=== PATIENT | male | born 1985 | race Caucasian/White ===

== ENCOUNTER 2019-09-22 15:19 | Emergency (ER) | payer MEDICAID ==
[~2019-09-22] VITALS: Ht 175.3 cm; Wt 90.9 kg
[2019-09-22] MEDS ORDERED: ALPR-624 PO (17:07)
[2019-09-22] MEDS ORDERED: FLUO40CA10 PO (17:07)
[2019-09-22] MEDS ORDERED: ALPR1TAB7 PO ×2 (17:12→17:27)
[2019-09-22 17:37] VITALS: BP 130/80
== END 2019-09-22 17:39 | disposition home or self-care (01) ==
LOC: ER 15:19
DX: F41.0 Panic disorder [episodic paroxysmal anxiety] (principal); F43.10 Post-traumatic stress disorder, unspecified; G89.29 Other chronic pain; Z79.899 Other long term (current) drug therapy
CPT/HCPCS: 99283

== ENCOUNTER 2019-10-12 14:10 | Emergency (ER) | payer MEDICAID ==
[~2019-10-12] VITALS: Ht 175.3 cm; Wt 95.5 kg
[~2019-10-12 14:10] MED LIST: ALPR1TAB7 PO; FLUO40CA10 PO
[2019-10-12 14:50] LABS: BASOPHILS % (AUTO) 0.6 % (0-1); EOSINOPHILS # (AUTO) 0.3 X10'3 (0-0.9); EOSINOPHILS % (AUTO) 4.5 % (0-6); HEMATOCRIT 47.5 % (42.0-52.0); HEMOGLOBIN 16.4 g/dl (14.0-17.9); LYMPHOCYTES # (AUTO) 1.9 X10'3 (1.1-4.8); LYMPHOCYTES % (AUTO) 24.8 % (21-51); MEAN CORPUSCULAR HEMOGLOBIN 31.3 PG (27.0-31.0); MEAN CORPUSCULAR HGB CONC 34.6 g/dL (33.0-36.5); MEAN CORPUSCULAR VOLUME 90.6 FL (78-98); MEAN PLATELET VOLUME 9.2 FL (7.4-10.4); MONOCYTES # (AUTO) 0.5 X10'3 (0-0.9); MONOCYTES % (AUTO) 7.1 % (2-12); NEUTROPHILS # (AUTO) 4.7 X10'3 (1.8-7.7); PLATELET COUNT 226 X10'3 (140-440); RED BLOOD COUNT 5.25 X10'6 (4.70-6.10); RED CELL DISTRIBUTION WIDTH 13.3 % (11.5-14.5); WHITE BLOOD COUNT 7.5 X10'3 (4.5-11.0)
[2019-10-12 15:07] LABS: ALANINE AMINOTRANSFERASE 38 U/L (12-78); ALKALINE PHOSPHATASE 94 IU/L (46-116); ANION GAP 8 (8-16); ASPARTATE AMINO TRANSFERASE 70 U/L (10-37); BILIRUBIN,TOTAL 0.8 MG/DL (0.1-1.0); BLOOD UREA NITROGEN 13 MG/DL (7-18); BUN/CREATININE RATIO 12.1 (5.4-32.0); CHLORIDE 100 MMOL/L (99-107); CREATININE 1.07 MG/DL (0.60-1.10); GLUCOSE 153 MG/DL (70-104); POTASSIUM 3.9 MMOL/L (3.5-5.1); SODIUM 135 MMOL/L (135-145); TOTAL CARBON DIOXIDE 27.2 MMOL/L (24-32); TOTAL PROTEIN 7.9 G/DL (6.4-8.2); eGFR 79 ML/MIN
--- NOTE | 2019-10-12 15:50 | NUR ---
ED provider Dr. Schultz is in the room with the patient.
[2019-10-12] MEDS ORDERED: LORazepam 1 MG tablet PO ONE (16:05)
--- NOTE | 2019-10-12 16:30 | NUR ---
Pt changed into green scrubs and belongings secured. Pt is calm and cooperative at this time.
[2019-10-12] MEDS ORDERED: LISD60CA PO (16:40)
[2019-10-12] MEDS ORDERED: FLUO20CA39 PO (16:54)
[2019-10-12] MEDS ORDERED: ALPR0.5T8 PO (16:54)
[2019-10-12 17:08] LABS: URINE AMPHETAMINE SCREEN POSITIVE (Neg); URINE BARBITUATE SCREEN NEGATIVE (Neg); URINE BENZODIAZEPINES SCREEN NEGATIVE (Neg); URINE CANNABINOID SCREEN POSITIVE (Neg); URINE COCAINE SCREEN NEGATIVE (Neg); URINE METHADONE SCREEN NEGATIVE (Neg); URINE OPIATE SCREEN NEGATIVE (Neg); URINE PHENCYCLIDINE SCREEN NEGATIVE (Neg)
--- NOTE | 2019-10-12 17:25 | NUR ---
Pt resting on the gurney. No change in condition.
[2019-10-12 17:52] LABS: ETHANOL < 0.010 GM/DL (0.0-0.010)
--- NOTE | 2019-10-12 18:15 | NUR ---
Pt is awaiting mental health evaluation from [facility] entry level project coordinator.
--- NOTE | 2019-10-12 18:57 | NUR ---
PT moved to the overflow section of the ED for further monitoring while awaiting mental health evaluation.
--- NOTE | 2019-10-12 19:00 | NUR ---
PT ESCORTED TO ER OVERFLOW BY STAFF, HE IS CALM AND COOPERATIVE WITH 1:1
--- NOTE | 2019-10-12 19:45 | NUR ---
PACKET FAXED TO [facility]
--- NOTE | 2019-10-12 20:15 | NUR ---
BREAKING PRIMARY RN- WILL CONT TO MONITOR.
[2019-10-12] MEDS: ALPRAZolam 0.5mg tablet PO PRN (20:17)
--- NOTE | 2019-10-12 20:45 | NUR ---
[facility] VISITED WITH PT, [id number] WILL BE WRITTEN
--- NOTE | 2019-10-12 21:50 | NUR ---
breaking primary RN- will cont to monitor.
--- NOTE | 2019-10-13 00:48 | NUR ---
PT asleeping on back, RR 16, even and unlabored.
--- NOTE | 2019-10-13 02:00 | NUR ---
PT ASLEEP ON L SIDE, RR WNL
--- NOTE | 2019-10-13 05:00 | NUR ---
PT TOSSES AND TURNS OCCASIONALLY BUT FALLS BACK ASLEEP
[2019-10-13 07:05] LABS: CLARITY,URINE CLEAR (Clear); COLOR,URINE YELLOW (Yellow); GLUCOSE, URINE NEGATIVE (Neg); KETONES,URINE NEGATIVE (Neg); LEUKOCYTE ESTERASE ,URINE NEGATIVE (Neg); NITRITES, URINE NEGATIVE (Neg); OCCULT BLOOD,URINE NEGATIVE (Neg); PH,URINE 7.5 (4.8-8.0); PROTEIN,URINE NEGATIVE (Neg)
[2019-10-13 07:06] LABS: UA COLLECTION TYPE CLN CATCH MIDSTREAM
--- NOTE | 2019-10-13 07:19 | NUR ---
PT IN BED RESTING SEEN REPOSITIONING SELF
[2019-10-13] MEDS: FLUoxetine 20mg capsule PO SCH (08:15)
[2019-10-13] MEDS: ALPRAZolam 0.5mg tablet PO PRN ×2 (08:15→20:17)
--- NOTE | 2019-10-13 08:53 | NUR ---
in bed resting at this time rise and fall of chest noted
--- NOTE | 2019-10-13 09:36 | NUR ---
patient asleep at this time,we will monitor.
--- NOTE | 2019-10-13 10:13 | NUR ---
in bed resting
--- NOTE | 2019-10-13 11:35 | NUR ---
in bed resting seen ambulating to bathroom
--- NOTE | 2019-10-13 13:22 | NUR ---
lunch surved but pt not eating at this time still trying to sleep
--- NOTE | 2019-10-13 16:35 | NUR ---
patient asleep at this time.We will continue to monitor.
--- NOTE | 2019-10-13 17:04 | NUR ---
pt awake laying in bed inform me that he normaly takes 1mg xanax not the 0.5 that is ordered and asked if he could get it incresed
--- NOTE | 2019-10-13 19:00 | NUR ---
PT ASLEEP IN BED, DECLINES HIS DINNER TRAY
--- NOTE | 2019-10-13 20:15 | NUR ---
PT REQUESTS PRN XANAX 0.5 MG WHICH IS GIVEN TO HIM.
--- NOTE | 2019-10-13 23:13 | NUR ---
PT ASLEEP ON BACK, RR 16
--- NOTE | 2019-10-14 03:03 | NUR ---
PT ASLEEP ON BACK, RR 16 EVEN AND UNLABORED
[2019-10-14] MEDS: FLUoxetine 20mg capsule PO SCH (08:12)
[2019-10-14] MEDS: ALPRAZolam 0.5mg tablet PO PRN ×2 (09:49→21:56)
[2019-10-14 17:36] VITALS: BP 121/83
--- NOTE | 2019-10-14 21:33 | NUR ---
Patient is sleeping quietly on his right side. He has self repositioned.
[2019-10-17] MEDS ORDERED: HYDR-3686 PO (17:17)
[2019-10-17] MEDS ORDERED: NICO-687 TD (17:17)
[2019-10-17] MEDS ORDERED: FLUO20CA39 PO (17:28)
== END 2019-10-14 23:44 ==
LOC: ER 14:11
DX: R45.851 Suicidal ideations (principal); R00.2 Palpitations; F15.90 Other stimulant use, unspecified, uncomplicated; R07.89 Other chest pain; G89.29 Other chronic pain; F41.9 Anxiety disorder, unspecified; Z79.899 Other long term (current) drug therapy
CPT/HCPCS: 36415; 71045; 80053; 80305; 80320; 81003; 83880; 84443; 84484; 85025; 93005; 99285

== ENCOUNTER 2019-11-20 06:13 | Emergency (ER) | payer MEDICAID ==
[~2019-11-20] VITALS: Ht 175.3 cm; Wt 95.5 kg
[~2019-11-20 06:13] MED LIST changes: -ALPR1TAB7 PO; +FLUO20CA39 PO; -FLUO40CA10 PO; +HYDR-3686 PO; +NICO-687 TD
[2019-11-20] MEDS ORDERED: LORazepam 1 MG tablet PO ONE (06:25)
--- NOTE | 2019-11-20 07:27 | NUR ---
PATIENT UP TO BATHROOM AND URINE CUP GIVEN TO PROVIDE SPECIMEN. PATIENT DID NOT GIVE SPECIMEN AT THIS TIME.
[2019-11-20 08:27] VITALS: BP 160/102
== END 2019-11-20 08:32 | disposition home or self-care (01) ==
LOC: ER 06:13
DX: F43.0 Acute stress reaction (principal); F41.9 Anxiety disorder, unspecified; G89.29 Other chronic pain; F17.200 Nicotine dependence, unspecified, uncomplicated; F12.90 Cannabis use, unspecified, uncomplicated; F15.90 Other stimulant use, unspecified, uncomplicated; Z72.89 Other problems related to lifestyle; Z79.899 Other long term (current) drug therapy
CPT/HCPCS: 99283

== ENCOUNTER 2019-11-24 10:45 | Emergency (ER) | payer MEDICAID ==
[~2019-11-24] VITALS: Ht 175.3 cm; Wt 102.0 kg
[2019-11-24 10:48] VITALS: BP 148/95
== END 2019-11-24 13:06 | disposition home or self-care (01) ==
LOC: ER 10:47
DX: Z00.8 Encounter for other general examination (principal); F10.239 Alcohol dependence with withdrawal, unspecified; Y90.9 Presence of alcohol in blood, level not specified
CPT/HCPCS: 99281

== ENCOUNTER 2020-07-23 08:33 | Emergency (ER) | payer MEDICAID ==
[~2020-07-23] VITALS: Ht 175.3 cm; Wt 100.0 kg
[2020-07-23] MEDS ORDERED: morphine 4 MG/ML inj SYRINge IV ONE ×2 (09:00→10:20)
[2020-07-23] MEDS ORDERED: ondansetron/PF 4mg/2ml inj IV ONE (09:00)
[2020-07-23 09:13] LABS: BASOPHILS % (AUTO) 0.4 % (0-1); EOSINOPHILS # (AUTO) 0.1 X10'3 (0-0.9); EOSINOPHILS % (AUTO) 1.4 % (0-6); HEMATOCRIT 47.1 % (42.0-52.0); HEMOGLOBIN 16.5 g/dl (14.0-17.9); LYMPHOCYTES # (AUTO) 1.8 X10'3 (1.1-4.8); LYMPHOCYTES % (AUTO) 19.6 % (21-51); MEAN CORPUSCULAR HEMOGLOBIN 30.4 PG (27.0-31.0); MEAN PLATELET VOLUME 8.6 FL (7.4-10.4); MONOCYTES # (AUTO) 0.7 X10'3 (0-0.9); MONOCYTES % (AUTO) 7.7 % (2-12); NEUTROPHILS # (AUTO) 6.7 X10'3 (1.8-7.7); NEUTROPHILS % (AUTO) 70.9 % (42-75); PLATELET COUNT 274 X10'3 (140-440); RED BLOOD COUNT 5.41 X10'6 (4.70-6.10); RED CELL DISTRIBUTION WIDTH 12.7 % (11.5-14.5); WHITE BLOOD COUNT 9.4 X10'3 (4.5-11.0)
--- NOTE | 2020-07-23 09:22 | NUR ---
PATRICIO LEES AT BEDSIDE.
[2020-07-23] MEDS ORDERED: LORazepam 2 mg/ml vial IV ONE (09:25)
[2020-07-23] MEDS ORDERED: normal saline 1000ML IV soln IVB ONE (09:25)
[2020-07-23] MEDS ORDERED: ketorolac trometh. 30mg/ml inj. IV ONE (09:25)
[2020-07-23 09:27] LABS: ALANINE AMINOTRANSFERASE 38 U/L (12-78); ALBUMIN 4.3 G/DL (3.4-5.0); ALBUMIN/GLOBULIN RATIO 1.5 (1.1-1.5); ALKALINE PHOSPHATASE 53 IU/L (46-116); ANION GAP 10 (8-16); ASPARTATE AMINO TRANSFERASE 20 U/L (10-37); BLOOD UREA NITROGEN 14 MG/DL (7-18); BUN/CREATININE RATIO 10.1 (5.4-32.0); CALCIUM 8.9 MG/DL (8.5-10.1); CHLORIDE 96 MMOL/L (99-107); CREATININE 1.38 MG/DL (0.60-1.10); GLUCOSE 100 MG/DL (70-104); LIPASE 54 U/L (73-393); POTASSIUM 3.4 MMOL/L (3.5-5.1); SODIUM 136 MMOL/L (135-145); TOTAL CARBON DIOXIDE 30.3 MMOL/L (24-32); TOTAL PROTEIN 7.1 G/DL (6.4-8.2); eGFR 59 ML/MIN
[2020-07-23] MEDS ORDERED: tamsulosin 0.4mg capsule PO STA (10:02)
[2020-07-23 10:10] LABS: CLARITY,URINE CLEAR (Clear); COLOR,URINE STRAW (Yellow); GLUCOSE, URINE NEGATIVE (Neg); KETONES,URINE NEGATIVE (Neg); LEUKOCYTE ESTERASE ,URINE NEGATIVE (Neg); NITRITES, URINE NEGATIVE (Neg); OCCULT BLOOD,URINE NEGATIVE (Neg); PROTEIN,URINE NEGATIVE (Neg); UROBILINOGEN,URINE 0.2 E.U/dL (0.2-1.0)
[2020-07-23 10:17] LABS: UA COLLECTION TYPE STRAIGHT CATH
[2020-07-23 10:19] LABS: URINE AMPHETAMINE SCREEN POSITIVE (Neg); URINE BARBITUATE SCREEN NEGATIVE (Neg); URINE BENZODIAZEPINES SCREEN NEGATIVE (Neg); URINE CANNABINOID SCREEN NEGATIVE (Neg); URINE COCAINE SCREEN NEGATIVE (Neg); URINE METHADONE SCREEN NEGATIVE (Neg); URINE OPIATE SCREEN POSITIVE (Neg); URINE PHENCYCLIDINE SCREEN NEGATIVE (Neg)
[2020-07-23 11:25] VITALS: BP 135/88
--- NOTE | 2020-07-23 11:28 | NUR ---
pt dc'd home
== END 2020-07-23 12:17 | disposition home or self-care (01) ==
LOC: ER 08:33
DX: R10.32 Left lower quadrant pain (principal); K59.00 Constipation, unspecified; R11.2 Nausea with vomiting, unspecified; G89.29 Other chronic pain; F41.9 Anxiety disorder, unspecified; F12.90 Cannabis use, unspecified, uncomplicated; F15.90 Other stimulant use, unspecified, uncomplicated; Z72.89 Other problems related to lifestyle; Z88.8 Allergy status to other drugs, medicaments and biological substances; Z79.899 Other long term (current) drug therapy
CPT/HCPCS: 36415; 74176; 80053; 80305; 81003; 83690; 84484; 85025; 93005; 96361; 96374; 96375; 96376; 99285; J1885; J2060; J2270; J2405; J7030

== ENCOUNTER 2023-11-04 16:36 | Emergency (ER) | payer BC, MEDICAID ==
[~2023-11-04] VITALS: Ht 175.3 cm; Wt 96.1 kg
[2023-11-04 16:37] VITALS: BP 139/86; PULSE 64; RESP 16; TEMP 98; O2SAT 95
== END 2023-11-04 17:05 | disposition home or self-care (01) ==
LOC: ER 16:36
DX: S92.512A Displaced fracture of proximal phalanx of left lesser toe(s), initial encounter for closed fracture (principal); G89.29 Other chronic pain; F12.90 Cannabis use, unspecified, uncomplicated; F15.90 Other stimulant use, unspecified, uncomplicated; Z91.041 Radiographic dye allergy status; Z98.890 Other specified postprocedural states; Z80.1 Family history of malignant neoplasm of trachea, bronchus and lung; X50.1XXA Overexertion from prolonged static or awkward postures, initial encounter; Y93.89 Activity, other specified; Y92.89 Other specified places as the place of occurrence of the external cause; Y99.8 Other external cause status
CPT/HCPCS: 73630; 99283; L3260

== ENCOUNTER 2023-12-30 17:26 | Emergency (ER) | payer BC, OTHER ==
[~2023-12-30] VITALS: Ht 175.3 cm; Wt 93.1 kg
[2023-12-30 17:30] VITALS: TEMP 97.9
[2023-12-30] MEDS ORDERED: prednisone 10mg tablet PO STA (18:06)
[2023-12-30] MEDS: albuterol 2.5 MG/3 ML nebule NEB STA (18:23)
[2023-12-30 18:25] VITALS: PULSE 57; RESP 17; O2SAT 96
[2023-12-30 18:31] VITALS: PULSE 68; RESP 18; O2SAT 97
[2023-12-30] MEDS: predniSONE 20 mg tablet PO STA (19:01)
[2023-12-30] MEDS: guaiFENesin 200mg/20mg codeine phos 10ml UD oral syrup PO STA (19:01)
[2023-12-30 19:45] VITALS: PULSE 58; RESP 17; O2SAT 96
[2023-12-30] MEDS: albuterol 2.5 MG/3 ML nebule NEB ONE (19:45)
[2023-12-30 19:50] VITALS: PULSE 63; RESP 18; O2SAT 97
[2023-12-30] MEDS ORDERED: PRED20TA PO (20:31)
[2023-12-30] MEDS ORDERED: IBUP-1984 PO (20:31)
[2023-12-30] MEDS ORDERED: ALBU18HF2 INH (20:31)
[2023-12-30] MEDS ORDERED: BENZ-38 PO (20:31)
[2023-12-30] MEDS: ketorolac trometh 15mg/ml vial 15 MG/ML ML IM ONE (20:49)
[2023-12-30 20:55] VITALS: BP 106/66; PULSE 56; RESP 16; O2SAT 95
== END 2023-12-30 20:57 | disposition home or self-care (01) ==
LOC: ER 17:27
DX: J20.9 Acute bronchitis, unspecified (principal); Z20.822 Contact with and (suspected) exposure to COVID-19; G89.29 Other chronic pain; F12.90 Cannabis use, unspecified, uncomplicated; F15.90 Other stimulant use, unspecified, uncomplicated; Z98.890 Other specified postprocedural states; Z91.041 Radiographic dye allergy status; Z79.899 Other long term (current) drug therapy
CPT/HCPCS: 36415; 71045; 87502; 87503; 87811; 94640; 96372; 99284; J1885; J7512; 94760

== ENCOUNTER 2024-04-28 19:13 | Emergency (ER) | payer OTHER ==
[~2024-04-28] VITALS: Ht 175.3 cm; Wt 94.0 kg
[~2024-04-28 19:13] MED LIST changes: +ALBU18HF2 INH; +PRED20TA PO
[2024-04-28] MEDS ORDERED: CLIN-197 PO (20:18)
[2024-04-28 20:28] VITALS: BP 128/76; PULSE 74; RESP 16; TEMP 98.5; O2SAT 98
== END 2024-04-28 20:35 | disposition home or self-care (01) ==
LOC: ER 19:13
DX: L03.113 Cellulitis of right upper limb (principal); F12.90 Cannabis use, unspecified, uncomplicated; F15.90 Other stimulant use, unspecified, uncomplicated; F41.9 Anxiety disorder, unspecified; Z88.8 Allergy status to other drugs, medicaments and biological substances; Z91.041 Radiographic dye allergy status; Z98.890 Other specified postprocedural states
CPT/HCPCS: 99283

== ENCOUNTER 2024-11-29 16:47 | Emergency (ER) | payer MEDICAID ==
[~2024-11-29] VITALS: Ht 175.3 cm; Wt 103.6 kg
[~2024-11-29 16:47] MED LIST changes: +ATEN50TA8 PO; +ESCI-8 PO; -FLUO20CA39 PO; +FLUO20CA41 PO; +LISD70CA; +LORA-269; +PREG150C47 PO; +[UNRECOGNIZED DRUG - CODE] PO
[2024-11-29 16:51] VITALS: BP 122/87; PULSE 100; RESP 18; O2SAT 98
--- NOTE | 2024-11-29 17:41 | Physician Documentation ---
History of Present Illness ~ Chief Complaint: See Chief Complaint Stated Complaint: HALLUCINATIONS Time Seen by MD: 16:58 Primary Medical Doctor: [facility] HPI This is a 39-year-old male with a history of methamphetamine abuse who presents after relapsing on methamphetamine, patient reports after meth use hearing auditory hallucinations telling him he has not been if patient reports thoughts of suicidal or homicidal ideation. Patient reports wanting help getting clean from meth. Patient additionally reports some anxiety since using meth. Patient reports no other acute symptoms or concerns. Tetanus within 5 years?: No Medication Reconciliation Allergies: Coded Allergies: Iodinated Contrast Media (Verified Allergy, Unknown, 11/29/24) iodine (Verified Allergy, Unknown, 11/29/24) Scheduled Atenolol (Atenolol), 1 TAB PO DAILY, (Reported) Escitalopram Oxalate (Escitalopram Oxalate), 1 TAB PO DAILY, (Reported) Fluoxetine Hcl* (Prozac*), 2 CAP PO DAILY Hydroxyzine Hcl (Atarax), 1 TAB PO Q12H Lisdexamfetamine Dimesylate (Vyvanse), 1 CAP DAILY, (Reported) Lorazepam (Loreev Xr), 1 CAP PO DAILY, (Reported) Nicotine 21 MG Patch* (Habitrol 21 MG Patch*), 1 PATCH TD DAILY Prednisone* (Prednisone*), 60 MG PO ONCE Pregabalin (Pregabalin), 1 CAP PO TID, (Reported) Scheduled PRN Albuterol Sulfate (Ventolin Hfa), 2 PUFFS INH Q4HPRN PRN for cough Hydroxyzine Hcl* (Atarax*), 50 MG PO TID PRN for ANXIETY Miscellaneous Medications Lorazepam (Ativan), (Reported) Past Medical History Past Medical History: Chronic Back Pain, Cellulitis, *PSYCH*, Anxiety, Panic Disorder Past Surgical History: noncontributory Other Past Surgical History: hernia repair Patient History: FH: lung cancer FATHER Peritoneal cancer MOTHER Alcohol Use: Heavy Drug Use: marijuana, methamphetamine Lives In: Home Review of Systems ROS As stated above in the HPI, otherwise all systems are reviewed and negative. Physical Exam Vital Signs: Temperature: 96.9, Source: Temporal, Heart Rate: 100, Respiratory Rate: 18, BP: 122/87, Pulse Oximetry: 98, Weight: 103.600 Oxygen Flow Rate: 0 Physical Exam VITALS: Reviewed and as above. GENERAL: Alert, nontoxic appearing, no apparent distress. RESPIRATORY: No increased work of breathing, no respiratory distress, speaking in full clear sentences NEURO: GCS 15 PSYCH: Stating no HI or SI Progress Results/Orders Results/Orders Orders - HOMA BAUER Substance Use Navigator (11/29/24 17:42) Vital Signs 11/29/24 11/29/24 16:51 19:09 Temp 96.9 96.9 Pulse 100 Resp 18 B/P (MAP) 122/87 Pulse Ox 98 O2 Flow Rate 0 Medical Decision Making Additional information obtaine: N/A Findings This 39-year-old male with a history of methamphetamine abuse presented due to auditory hallucinations after meth use, patient is not reporting HI or SI which is reassuring, patient appears to have good insight and judgment and is requesting help getting off of meth. Patient did report some anxiety therefore prescription for Atarax is indicated patient is otherwise well-appearing reporting no other acute symptoms or concerns and is appropriate for outpatient follow up. A referral was made to the substance use navigator. Patient provided home care instructions, return to care precautions and follow up instructions which he verbalized understanding of. Differential Dx:Considerations: Include: Intoxication-Alcohol, Intoxication- Other drug, Personality disorder, Substance abuse disorder, Acute delirium, Alcohol withdrawl syndrom, Other (Suicidal, homicidal) Departure Time of Disposition: 17:39 Disposition: 01 HOME / SELF CARE / HOMELESS Impression: Primary Impression: Methamphetamine abuse Condition: Improved Discharge Instructions: Methamphetamines Use Disorder Additional Instructions: Refrain from methamphetamine use, please use the prescribed medications as needed for anxiety. The substance use navigator will reach out to you likely tomorrow. Please follow up with your primary care provider in the next few days. Please return to the emergency department for any new or worsening concerning symptoms including but not limited to feelings of harming yourself. Referrals: NO PRIMARY CARE PROVIDER (PCP) Prescriptions Hydroxyzine Hcl (Atarax) 25 Mg Tablet 1 TAB PO Q12H for anxiety for 30 Days, #60 TAB 0 Refills Prov: HOMA BAUER 11/29/24 Education Educated: Patient, Family Educated regarding: diagnosis, treatment, prognosis, need for follow up Signature Scribe Signature: No scribe Attestation: The note accurately reflects work and decisions made by me.JAZIEL Spann 11/29/24 19:25 Parts of this note were created using [employer] voice recognition software [employer]. While efforts were made to correct any mistakes made by this voice recognition software program, nonsensical phrases may remain in this note. In addition, there may be errors and syntax, grammar, content and spelling. HOMA BAUER Nov 29, 2024 17:41
[2024-11-29] MEDS ORDERED: HYDR-3686 PO (17:42)
[2024-11-29 19:09] VITALS: TEMP 96.9
== END 2024-11-29 19:10 | disposition home or self-care (01) ==
LOC: ER 16:47
DX: F15.10 Other stimulant abuse, uncomplicated (principal); G89.29 Other chronic pain; F12.90 Cannabis use, unspecified, uncomplicated; F10.90 Alcohol use, unspecified, uncomplicated; Z98.890 Other specified postprocedural states; Z91.041 Radiographic dye allergy status; Z79.899 Other long term (current) drug therapy; Y90.9 Presence of alcohol in blood, level not specified
CPT/HCPCS: 99283